=== PATIENT | male | born 1995 | race African-American/Black ===

== ENCOUNTER 2022-11-28 14:22 | Emergency (ER) | payer MEDICAID ==
[~2022-11-28] VITALS: Ht 175.3 cm; Wt 74.0 kg
[2022-11-28 14:34] VITALS: BP 153/85
[2022-11-28] MEDS ORDERED: ACETAMINOPHEN 325MG TABLET PO ONE (17:00)
[2022-11-28] MEDS ORDERED: IBUPROFEN 400MG TABLET PO ONE (17:00)
== END 2022-11-28 20:27 | disposition left against medical advice (07) ==
LOC: ER 14:22
DX: M54.59 Other low back pain (principal); G47.09 Other insomnia
CPT/HCPCS: 99281

== ENCOUNTER 2022-11-29 17:10 | Emergency (ER) | payer MEDICAID ==
[~2022-11-29] VITALS: Ht 175.3 cm; Wt 79.0 kg
[2022-11-29 17:30] VITALS: BP 125/84
[2022-11-29 19:54] LABS: BASOPHILS % 0.7 % (0.0-2.0); EOSINOPHILS % 0.2 % (0.0-5.0); HEMATOCRIT. 42.7 % (42.0-52.0); HEMOGLOBIN. 14.4 g/dL (14.0-18.0); LYMPHOCYTES % 22.1 % (20.0-50.0); MEAN CORPUSCULAR HEMOGLOBIN 29.1 pg (28.0-32.0); MEAN PLATELET VOLUME 9.1 fl (7.4-10.4); PLATELET 187 x1000/uL (130-400); RED BLOOD CELL COUNT 4.96 mill/uL (4.7-6.1); RED CELL DISTRIBUTION WIDTH 13.6 % (11.6-14.6)
[2022-11-29 20:07] LABS: CHLORIDE 103 mEq/L (98-107)
== END 2022-11-29 22:00 | disposition left against medical advice (07) ==
LOC: ER 17:10
DX: G89.21 Chronic pain due to trauma (principal); M54.59 Other low back pain; Z87.828 Personal history of other (healed) physical injury and trauma; R22.2 Localized swelling, mass and lump, trunk; R73.9 Hyperglycemia, unspecified
CPT/HCPCS: 36415; 72128; 72131; 80053; 85025; 85651; 99284